=== PATIENT | female | born 1990 | race African-American/Black ===

== ENCOUNTER 2023-07-16 18:17 | Emergency (ER) | payer OTHER, SELFPAY ==
[2023-07-16 18:21] VITALS: BP 133/92; PULSE 95; RESP 18; TEMP 36.8; O2SAT 100; BMI 37.8
--- NOTE | 2023-07-16 18:26 | ED.CHESTPAI1 ---
Documented by User: GORAN Dominguez 07/16/23 20:31 HPI - Chest Pain General Chief Complaint: Chest Pain Stated Complaint: CHEST PAIN Time Seen by Provider: 07/16/23 18:18 Mode of arrival: walk-in Limitations: no limitations History of Present Illness HPI narrative: patient is a 32-year-old female who presents to the emergency department for the evaluation of pain in the substernal chest/epigastrium that began around 8:30 this morning. She states she has felt lightheaded, nauseous all day. She denies any vertigo-type symptoms. She has had no fevers, upper respiratory symptoms or vomiting. She denies any history of heart or lung problems. She is not concerned for . she takes Protonix for history of acid reflux. She has not had any extremity swelling. Risk Factors Coronary artery disease risk factors: none Related Data Home Medications Medication Instructions Recorded Confirmed pantoprazole 40 mg tablet,delayed 40 mg PO DAILY 07/16/23 07/16/23 release Previous Rx's Medication Instructions Recorded methocarbamol 750 mg tablet 750 mg PO TID PRN pain #20 tabs 07/16/23 sucralfate 1 gram tablet (Carafate) 1 g PO Q6H PRN pain #12 tabs 07/16/23 Allergies Allergy/AdvReac Type Severity Reaction Status Date / Time No Known Drug Allergies Allergy Verified 07/16/23 18:21 Review of Systems ROS Constitutional Denies: fever or chills Ears, nose, mouth, and throat Denies: throat pain Cardiovascular Reports: chest pain Respiratory Denies: shortness of breath or cough Gastrointestinal Reports: nausea; Denies: vomiting or diarrhea Genitourinary Denies: painful urination Musculoskeletal Denies: back pain or neck pain Integumentary/Breast Denies: rash Neurological Reports: dizziness; Denies: headache Endocrine Denies: excessive urination PFSH PFSH Social History Smoking status: Never smoker Exam Narrative Exam Narrative: Gen.: Awake, alert, in no distress Head: Normocephalic, atraumatic ENT: Moist mucous membranes Respiratory: No respiratory distress, lungs clear bilaterally Cardio: Regular rate and rhythm, tender in the inferior sternum/epigastrium with no guarding or rebound Gastrointestinal: Abdomen is soft, nondistended and nontender to palpation Extremities: Moves extremities equally, no pedal edema Psych: Normal mood and affect Neuro: No focal neuro deficit Skin: Warm, dry, intact Constitutional Vital Signs, click to edit/add: Last Vital Signs Temp 98.2 F 07/16/23 18:21 Pulse 98 H 07/16/23 19:47 Resp 18 07/16/23 19:47 BP 141/80 07/16/23 19:47 Pulse Ox 100 07/16/23 19:47 Course Vital Signs Vital signs: Vital Signs Temperature 98.2 F 07/16/23 18:21 Pulse Rate 95 H 07/16/23 18:21 Respiratory Rate 18 07/16/23 18:21 Blood Pressure 133/92 H 07/16/23 18:21 Pulse Oximetry 100 07/16/23 18:21 Temperature 98.2 F 07/16/23 18:21 Pulse Rate 98 H 07/16/23 19:47 Respiratory Rate 18 07/16/23 19:47 Blood Pressure 141/80 07/16/23 19:47 Pulse Oximetry 100 07/16/23 19:47 MDM - Chest Pain MDM Narrative Medical decision making narrative: patient treated with IV fluids, aspirin given as a precaution and she was given IV Pepcid, Toradol and reported improvement. Lab studies are unremarkable although potassium was slightly low. This was replenished orally in the Emergency Room. D-dimer was elevated and CT angiogram of the chest shows no evidence of PE or other abnormalities. Stable vital signs on reevaluation and the patient is discharged home with primary care follow-up. She was given Carafate as I suspect esophagitis as part of her source of pain, Robaxin given as needed for chest wall pain. Return to the Emergency Room if symptoms change or worsen. Medical Records Data Attestation: I reviewed the patient's medical records. Lab Data Attestation: I reviewed the patient's lab results. Labs: Lab Results 07/16/23 Range/Units 18:25 WBC 9.7 (4.0-11.0) 10^3/uL RBC 4.29 (4.20-5.40) 10^6/uL Hgb 12.2 (12.0-16.0) g/dL Hct 36.9 (36.0-48.0) % MCV 86.0 (81.0-99.0) fL MCH 28.4 (26.7-34.0) pg MCHC 33.1 (29.9-35.2) g/dL RDW 13.2 (11.0-15.0) % Plt Count 238 (150-450) 10^3/uL MPV 11.0 (9.5-13.5) fL Neut % (Auto) 66.8 (43.0-75.0) % Lymph % (Auto) 24.7 (20.5-60.0) % [place] % (Auto) 7.0 (1.7-12.0) % Eos % (Auto) 0.3 L (0.9-7.0) % Baso % (Auto) 0.9 (0.2-2.0) % Neut # (Auto) 6.5 (1.4-6.5) 10^3/uL Lymph # (Auto) 2.4 (1.2-3.8) 10^3/uL [place] # (Auto) 0.7 (0.3-0.8) 10^3/uL Eos # (Auto) 0.0 (0.0-0.7) 10^3/uL Baso # (Auto) 0.1 (0.0-0.1) 10^3/uL Abs Immat Gran (auto) 0.03 (0.00-0.03) 10^3/uL Imm/Tot Granulo (auto) 0.3 (0.0-0.5) % PT 10.4 (9.0-11.6) sec INR 0.98 APTT 27.2 (22.3-36.2) sec D-Dimer 1.21 H* (<=0.59) mg/L FEU Sodium 135 L (136-145) mmol/L Potassium 3.2 L (3.5-5.1) mmol/L Chloride 103 (98-107) mmol/L Carbon Dioxide 23.1 (21.0-32.0) mmol/L Anion Gap 12.1 BUN 10.0 (7.0-18.0) mg/dL Creatinine 0.91 (0.55-1.02) mg/dL Est GFR ( Amer) >60 (>=60) Est GFR (Non-Af Amer) >60 (>=60) BUN/Creatinine Ratio 11.0 Glucose 93 (74-106) mg/dL Calcium 9.2 (8.5-10.1) mg/dL Total Bilirubin 0.4 (0.2-1.0) mg/dL AST 30 (15-37) U/L ALT 73 H (14-59) U/L Alkaline Phosphatase 89 (46-116) U/L Troponin I High Sens <4.0 L (4.0-51.3) pg/mL NT-Pro-B Natriuret Pep 16.0 (<=450.0) pg/mL Total Protein 8.2 (6.4-8.2) g/dL Albumin 3.9 (3.4-5.0) g/dL Globulin 4.3 g/dL Albumin/Globulin Ratio 0.9 Lipase 35.0 (16.0-77.0) U/L Imaging Data CT scan - chest: Attestation: I have reviewed the pertinent imaging results. Radiologist's impression: Procedure: CT angio chest EXAMINATION: CHEST CT WITH CONTRAST (PULMONARY EMBOLISM PROTOCOL) Indication: Chest pain Technique: Spiral CT acquisition of the chest from the thoracic inlet to the upper abdomen following IV contrast. Maximum intensity projection (MIP)reconstructions were performed. All CT scans at this facility use dose modulation, iterative reconstruction, and/or weight based dosing when appropriate to reduce radiation dose to as low as reasonably achievable. Contrast: 100 mL of Omnipaque 350 IV Comparison: CT chest 08/29/2017 RESULT: Limitations: None. Evaluation for thromboembolic disease: - Right heart chambers: No thromboembolic disease. - Main pulmonary arteries: No thromboembolic disease. - Lobar pulmonary arteries: No thromboembolic disease. - Segmental pulmonary arteries: No thromboembolic disease. - Subsegmental pulmonary arteries: No thromboembolic disease. Lines, tubes, and devices: None. Lung parenchyma and pleura: No consolidation. No suspicious pulmonary nodule. No pleural effusion. Central airways are patent. Thoracic inlet, heart, and mediastinum: No lymphadenopathy in the axillary, mediastinal, or hilar regions. The thoracic aorta and main pulmonary artery are normal in caliber. The cardiac chambers are normal in size. No coronary artery atherosclerotic calcifications are noted, although the study is not optimized for coronary assessment. No pericardial effusion or thickening. Bones and soft tissues: No destructive bone lesion. Chest wall is unremarkable. Upper abdomen: Diffuse steatosis. . IMPRESSION: No CT evidence of pulmonary embolism or acute findings in the thorax. Diffuse hepatic steatosis. Electronically authenticated by: MARGARITA QUILES Date: 07/16/2023 20:13 ECG Data Attestation: I personally reviewed and interpreted this ECG as follows: (normal sinus rhythm at a rate of eighty-eight, sinus arrhythmia noted with no acute ST elevation or ectopy. EKG reviewed by attending physician) ECG interpretation date: 07/16/23 ECG interpretation time: 18:37 Heart Score History: Slightly/Non-Suspicious ECG: Normal Age: <45 years Risk Factors: 1 or 2 Risk Factors Troponin: <Normal Limit Total Heart Score Recommendations & Risks:: 1 Discharge Plan Discharge Chief Complaint: Chest Pain Clinical Impression: Chest pain Patient Disposition: Home, Self-Care Time of Disposition Decision: 20:27 Condition: Good Prescriptions / Home Meds: New sucralfate [Carafate] 1 gram tablet 1 g PO Q6H PRN (Reason: pain) Qty: 12 0RF methocarbamol 750 mg tablet 750 mg PO TID PRN (Reason: pain) Qty: 20 0RF No Action pantoprazole 40 mg tablet,delayed release (DR/EC) 40 mg PO DAILY Instructions: Chest Pain (ED) Stand Alone Forms: Portal Instructions Referrals: Physician,Non-Staff, [Primary Care Provider] - 1 week Discharge Date/Time: 07/16/23 20:46 Documented by User: Tuan Trent MD 07/17/23 06:53 HPI - Chest Pain General Chief Complaint: Chest Pain Stated Complaint: CHEST PAIN Time Seen by Provider: 07/16/23 18:18 Related Data Home Medications Medication Instructions Recorded Confirmed pantoprazole 40 mg tablet,delayed 40 mg PO DAILY 07/16/23 07/16/23 release Previous Rx's Medication Instructions Recorded methocarbamol 750 mg tablet 750 mg PO TID PRN pain #20 tabs 07/16/23 sucralfate 1 gram tablet (Carafate) 1 g PO Q6H PRN pain #12 tabs 07/16/23 Allergies Allergy/AdvReac Type Severity Reaction Status Date / Time No Known Drug Allergies Allergy Verified 07/16/23 18:21 PFSH PFSH Social History Smoking status: Never smoker Exam Constitutional Vital Signs, click to edit/add: Last Vital Signs Temp 98.2 F 07/16/23 18:21 Pulse 98 H 07/16/23 19:47 Resp 18 07/16/23 19:47 BP 141/80 07/16/23 19:47 Pulse Ox 100 07/16/23 19:47 Course Vital Signs Vital signs: Vital Signs Temperature 98.2 F 07/16/23 18:21 Pulse Rate 95 H 07/16/23 18:21 Respiratory Rate 18 07/16/23 18:21 Blood Pressure 133/92 H 07/16/23 18:21 Pulse Oximetry 100 07/16/23 18:21 Temperature 98.2 F 07/16/23 18:21 Pulse Rate 98 H 07/16/23 19:47 Respiratory Rate 18 07/16/23 19:47 Blood Pressure 141/80 07/16/23 19:47 Pulse Oximetry 100 07/16/23 19:47 MDM - Chest Pain Lab Data Labs: Lab Results 07/16/23 Range/Units 18:25 WBC 9.7 (4.0-11.0) 10^3/uL RBC 4.29 (4.20-5.40) 10^6/uL Hgb 12.2 (12.0-16.0) g/dL Hct 36.9 (36.0-48.0) % MCV 86.0 (81.0-99.0) fL MCH 28.4 (26.7-34.0) pg MCHC 33.1 (29.9-35.2) g/dL RDW 13.2 (11.0-15.0) % Plt Count 238 (150-450) 10^3/uL MPV 11.0 (9.5-13.5) fL Neut % (Auto) 66.8 (43.0-75.0) % Lymph % (Auto) 24.7 (20.5-60.0) % [place] % (Auto) 7.0 (1.7-12.0) % Eos % (Auto) 0.3 L (0.9-7.0) % Baso % (Auto) 0.9 (0.2-2.0) % Neut # (Auto) 6.5 (1.4-6.5) 10^3/uL Lymph # (Auto) 2.4 (1.2-3.8) 10^3/uL [place] # (Auto) 0.7 (0.3-0.8) 10^3/uL Eos # (Auto) 0.0 (0.0-0.7) 10^3/uL Baso # (Auto) 0.1 (0.0-0.1) 10^3/uL Abs Immat Gran (auto) 0.03 (0.00-0.03) 10^3/uL Imm/Tot Granulo (auto) 0.3 (0.0-0.5) % PT 10.4 (9.0-11.6) sec INR 0.98 APTT 27.2 (22.3-36.2) sec D-Dimer 1.21 H* (<=0.59) mg/L FEU Sodium 135 L (136-145) mmol/L Potassium 3.2 L (3.5-5.1) mmol/L Chloride 103 (98-107) mmol/L Carbon Dioxide 23.1 (21.0-32.0) mmol/L Anion Gap 12.1 BUN 10.0 (7.0-18.0) mg/dL Creatinine 0.91 (0.55-1.02) mg/dL Est GFR ( Amer) >60 (>=60) Est GFR (Non-Af Amer) >60 (>=60) BUN/Creatinine Ratio 11.0 Glucose 93 (74-106) mg/dL Calcium 9.2 (8.5-10.1) mg/dL Total Bilirubin 0.4 (0.2-1.0) mg/dL AST 30 (15-37) U/L ALT 73 H (14-59) U/L Alkaline Phosphatase 89 (46-116) U/L Troponin I High Sens <4.0 L (4.0-51.3) pg/mL NT-Pro-B Natriuret Pep 16.0 (<=450.0) pg/mL Total Protein 8.2 (6.4-8.2) g/dL Albumin 3.9 (3.4-5.0) g/dL Globulin 4.3 g/dL Albumin/Globulin Ratio 0.9 Lipase 35.0 (16.0-77.0) U/L Heart Score Total Heart Score Recommendations & Risks:: 1 Discharge Plan Discharge Chief Complaint: Chest Pain Clinical Impression: Chest pain Patient Disposition: Home, Self-Care Time of Disposition Decision: 20:27 Condition: Good Prescriptions / Home Meds: New sucralfate [Carafate] 1 gram tablet 1 g PO Q6H PRN (Reason: pain) Qty: 12 0RF methocarbamol 750 mg tablet 750 mg PO TID PRN (Reason: pain) Qty: 20 0RF No Action pantoprazole 40 mg tablet,delayed release (DR/EC) 40 mg PO DAILY Instructions: Chest Pain (ED) Stand Alone Forms: Portal Instructions Referrals: Physician,Non-Staff, MD [Primary Care Provider] - 1 week Discharge Date/Time: 07/16/23 20:46
--- NOTE | 2023-07-16 18:33 | ECG_ITS ---
[facility] Test Date: 2023-07-16 Pat Name: MIGNON LAINEZ Department: Room: - Gender: Female Medical Secretary: : 1990 Requested By: 0929 Order Number: [id number] Reading MD: ABDULKADIR WEINBERG Measurements Intervals [place] Rate: 88 P: 24 [place]: 142 QRS: 28 QRSD: 80 T: 25 QT: 336 QTc: 381 Interpretive Statements 1100 Sinus rhythm 1102 Sinus arrhythmia 3113 Cannot rule out anterior myocardial infarction, probably old 9150 abnormal ECG No previous ECG available for comparison Electronically Signed On 07-17-2023 7:04:36 EDT by ABDULKADIR WEINBERG
[2023-07-16] MEDS: ASPIRIN 81 MG TAB.CHEW 162 MG PO (18:59)
[2023-07-16] MEDS: KETOROLAC TROMETHAMINE 30 MG/ML VIAL IVP (19:00)
[2023-07-16] MEDS: FAMOTIDINE/PF 20 MG/2 ML VIAL IV (19:00)
[2023-07-16] MEDS: ONDANSETRON PF 4 MG/2 ML VIAL IV (19:00)
[2023-07-16 19:01] VITALS: BP 148/98; PULSE 90; RESP 18; O2SAT 100
[2023-07-16 19:02] LABS: Basophils Absolute Auto 0.1 10^3/uL (0.0-0.1); Basophils Percent Auto 0.9 % (0.2-2.0); Eosinophils Percent Auto 0.3 % (0.9-7.0); Hematocrit 36.9 % (36.0-48.0); Hemoglobin 12.2 g/dL (12.0-16.0); Immature Granulocytes Abs Auto 0.03 10^3/uL (0.00-0.03); Immature Granulocytes Pct Auto 0.3 % (0.0-0.5); Lymphocytes Absolute Auto 2.4 10^3/uL (1.2-3.8); Lymphocytes Percent Auto 24.7 % (20.5-60.0); Mean Corpuscular HGB Conc 33.1 g/dL (29.9-35.2); Mean Corpuscular Hemoglobin 28.4 pg (26.7-34.0); Monocytes Absolute Auto 0.7 10^3/uL (0.3-0.8); Neutrophils Absolute Auto 6.5 10^3/uL (1.4-6.5); Neutrophils Percent Auto 66.8 % (43.0-75.0); Platelet Count 238 10^3/uL (150-450); Red Blood Count 4.29 10^6/uL (4.20-5.40); Red Cell Distribution Width 13.2 % (11.0-15.0); White Blood Count 9.7 10^3/uL (4.0-11.0)
[2023-07-16 19:15] LABS: INR 0.98; Partial Thromboplastin Time 27.2 sec (22.3-36.2); Prothrombin Time 10.4 sec (9.0-11.6)
--- NOTE | 2023-07-16 19:17 | CT_ITS ---
The [address] [address] Patient Name: MIGNON LAINEZ MRN: [id number] date: 1990 Sex: F Assigned Patient Location: ER Current Patient Location: ER Accession/Order Number: [id number] Exam Date: 07/16/2023 19:35 Report Date: 07/16/2023 20:13 At the request of: LAILTA GIVENS Procedure: CT angio chest EXAMINATION: CHEST CT WITH CONTRAST (PULMONARY EMBOLISM PROTOCOL) Indication: Chest pain Technique: Spiral CT acquisition of the chest from the thoracic inlet to the upper abdomen following IV contrast. Maximum intensity projection (MIP)reconstructions were performed. All CT scans at this facility use dose modulation, iterative reconstruction, and/or weight based dosing when appropriate to reduce radiation dose to as low as reasonably achievable. Contrast: 100 mL of Omnipaque 350 IV Comparison: CT chest 08/29/2017 RESULT: Limitations: None. Evaluation for thromboembolic disease: - Right heart chambers: No thromboembolic disease. - Main pulmonary arteries: No thromboembolic disease. - Lobar pulmonary arteries: No thromboembolic disease. - Segmental pulmonary arteries: No thromboembolic disease. - Subsegmental pulmonary arteries: No thromboembolic disease. Lines, tubes, and devices: None. Lung parenchyma and pleura: No consolidation. No suspicious pulmonary nodule. No pleural effusion. Central airways are patent. Thoracic inlet, heart, and mediastinum: No lymphadenopathy in the axillary, mediastinal, or hilar regions. The thoracic aorta and main pulmonary artery are normal in caliber. The cardiac chambers are normal in size. No coronary artery atherosclerotic calcifications are noted, although the study is not optimized for coronary assessment. No pericardial effusion or thickening. Bones and soft tissues: No destructive bone lesion. Chest wall is unremarkable. Upper abdomen: Diffuse steatosis. . CT/CT angio chest IMPRESSION: No CT evidence of pulmonary embolism or acute findings in the thorax. Diffuse hepatic steatosis. Electronically authenticated by: MARGARITA QUILES Date: 07/16/2023 20:13
[2023-07-16 19:18] LABS: D Dimer 1.21 mg/L FEU (<=0.59)
[2023-07-16 19:30] LABS: Alanine Aminotransferase 73 U/L (14-59); Albumin Globulin Ratio 0.9; Albumin Level 3.9 g/dL (3.4-5.0); Alkaline Phosphatase 89 U/L (46-116); Anion Gap 12.1; Aspartate Amino Transferase 30 U/L (15-37); Bilirubin Total 0.4 mg/dL (0.2-1.0); Calcium 9.2 mg/dL (8.5-10.1); Carbon Dioxide 23.1 mmol/L (21.0-32.0); Chloride 103 mmol/L (98-107); Estimated GFR (African America >60 (>=60); Estimated GFR (Non-African Ame >60 (>=60); Globulin 4.3 g/dL; Glucose 93 mg/dL (74-106); Potassium 3.2 mmol/L (3.5-5.1); Sodium 135 mmol/L (136-145); Total Protein 8.2 g/dL (6.4-8.2); Troponin I High Sensitivity <4.0 pg/mL (4.0-51.3)
[2023-07-16 19:47] VITALS: BP 141/80; PULSE 98; RESP 18; O2SAT 100
[2023-07-16] MEDS: POTASSIUM BICARBONATE/CIT 25 MEQ TABLET EFF 50 MEQ PO (20:04)
== END 2023-07-16 20:46 | disposition home or self-care (01) ==
PROVIDERS: Physician Assistant; Emergency Provider Internal Medicine
DX: R07.9 Chest pain, unspecified (principal); Z79.899 Other long term (current) drug therapy; K21.9 Gastro-esophageal reflux disease without esophagitis; R79.89 Other specified abnormal findings of blood chemistry
CPT/HCPCS: 36415; 71275; 80053; 83690; 83880; 84484; 85025; 85378; 85610; 85730; 93005; 96374; 96375; 99285; Q9967

== ENCOUNTER 2025-02-14 20:58 | Observation (INO) | payer BC, SELFPAY ==
[2025-02-14] VITALS (20 sets, daily range): BP systolic 127–137; BP diastolic 72–95; PULSE 103; TEMP 37.3; O2SAT 97–100; BMI 39.5
--- NOTE | 2025-02-14 21:23 | PC.NURSE ---
complains of left forearm numbness onset 1 week ago, denies any injury, falls or trauma to the left forearm to causes this numbness then a couple days ago numbness progressed to left hand, left face and left leg. this patient voices no other complaints or needs and shows no signs of distress
--- NOTE | 2025-02-14 21:27 | ED_ITS ---
HPI HPI - General Adult General Chief complaint: Extremity Problem, Nontraumatic Stated complaint: NUMBNESS ON L SIDE OF BODY Time Seen by Provider: 02/14/25 21:09 Source: patient Mode of arrival: walk-in History of Present Illness HPI narrative: patient presents complaining of numbness of her left arm on and off for the past week. Today numbness left arm , left hand and left toes . Also sensation numbness left face. No weakness or headache. No dizziness or difficulty walking. Does not have past history of HTN Related Data Allergies Allergy/AdvReac Type Severity Reaction Status Date / Time No Known Drug Allergies Allergy Verified 07/16/23 18:21 Opioid HPI Opioid Management Most Recent Opioid Data: Last Pain Scale 4 Today, 06:00 Last Pain Assessment Today, 05:00 Last ORT Total Score 1 Today, 04:21 Last ORT Risk Category Low Risk Today, 04:21 Review of Systems ROS Status of ROS 10 or more systems reviewed and unremark able except as noted in history and below [facility] Medical History (Updated 02/15/25 @ 04:48 by Magalie Curry) Sleep apnea ?G47.30 - Sleep apnea, unspecified (ICD-10) section wound complications ?O90.9 - Complication of the puerperium, unspecified (ICD-10) Surgical History (Updated 02/15/25 @ 04:46 by Magalie Curry) H/O adenoidectomy ?Z90.89 - Acquired absence of other organs (ICD-10) History of placement of ear tubes ?Z96.22 - Myringotomy tube(s) status (ICD-10) History of tonsillectomy ?Z90.89 - Acquired absence of other organs (ICD-10) Family History (Updated 02/15/25 @ 04:49 by Magalie Curry) Father Family history of diabetes mellitus Mother Family history of hypertension Aunt Family history of myocardial infarction Social History (Updated 02/15/25 @ 04:51 by Magalie Curry) Within the past year, how often did you have a drink containing alcohol: monthly or less Within the past year, how many standard drinks containing alcohol did you have on a typical day: 1 or 2 Within the past year, how often did you have six or more drinks on one occasion: never Total score: 0 Score interpretation: A score less than 3 is consistent with normal alcohol consumption. Smoking status: Never smoker Non-prescribed substance use: denies use Previous occupational history: [employer] Highest level of school completed/degree received: high school graduate Little interest or pleasure in doing things: not at all Feeling down, depressed, or hopeless: not at all Feel stressed/tense/nervous/anxious/difficulty sleeping: not at all Exam Constitutional Vital Signs, click to edit/add: Last Vital Signs Temp 98.2 F 02/15/25 04:21 Pulse 73 02/15/25 06:00 Resp 16 02/15/25 04:21 BP 145/80 H 02/15/25 04:21 Pulse Ox 97 02/15/25 04:21 O2 Del Method Room Air 02/15/25 04:21 Common normals: no apparent distress, average body habitus, oriented x3, no limitations, healthy appearing, alert and well nourished HENKY Common normals: normocephalic and head/scalp atraumatic Eye Common normals: PERRL, EOMs intact bilaterally and conjunctivae normal Respiratory Common normals: normal respiratory effort, no retractions, no use of accessory muscles and clear to auscultation bilaterally Cardio Common normals: regular rate, regular rhythm, S1 normal heart sound and S2 normal heart sound GI Common normals: Normal to inspection, nondistended, normoactive bowel sounds present, soft to palpation and non-tender Extremity Common normals: normal to inspection and full ROM Neuro Common normals: oriented x3, CN's II-XII intact bilaterally, moves all extremities and no focal motor deficits Psych Appearance: grossly normal Course Vital Signs Vital signs: Vital Signs Temperature 99.2 F 02/14/25 21:03 Pulse Rate 103 H 02/14/25 21:03 Respiratory Rate 16 02/14/25 21:03 Blood Pressure 137/82 02/14/25 21:03 Pulse Oximetry 100 02/14/25 21:03 Oxygen Delivery Method Room Air 02/14/25 21:03 Temperature 98.2 F 02/15/25 04:21 Pulse Rate 73 02/15/25 06:00 Respiratory Rate 16 02/15/25 04:21 Blood Pressure 145/80 H 02/15/25 04:21 Pulse Oximetry 97 02/15/25 04:21 Oxygen Delivery Method Room Air 02/15/25 04:21 Medical Decision Making MDM Narrative Medical decision making narrative: patient who is otherwise healthy presents complaining of numbing sensation left arm on and off over the past week. Tonight again developed numbness of the left arm but also had numbness left hand, left toes and left face. No muscular weakness . No headache, dizziness or visual complaint. Exam unremarkable. Basic labs neg and noncontrast CT brain neg. Patient re evaluated and now she is symptom free. Neurology paged Discussed with [facility] stroke who recommends CTA brain CTA brain return without hemodynamically significant stenosis or aneurysymal dilatation. [facility] who recommends admission and workup for possible causes of TIA due to recurrent episodes of unilateral numbness. Patient and her family informed and are in agreement Lab Data Labs: Lab Results 02/14/25 02/14/25 Range/Units 21:10 21:45 WBC 6.5 (4.0-11.0) 10^3/uL RBC 4.34 (4.20-5.40) 10^6/uL Hgb 12.8 (12.0-16.0) g/dL Hct 37.0 (36.0-48.0) % MCV 85.3 (81.0-99.0) fL MCH 29.5 (26.7-34.0) pg MCHC 34.6 (29.9-35.2) g/dL RDW 12.8 (11.0-15.0) % Plt Count 229 (150-450) 10^3/uL MPV 11.2 (9.5-13.5) fL Neut % (Auto) 66.3 (43.0-75.0) % Lymph % (Auto) 25.1 (20.5-60.0) % [place] % (Auto) 6.4 (1.7-12.0) % Eos % (Auto) 1.1 (0.9-7.0) % Baso % (Auto) 0.9 (0.2-2.0) % Neut # (Auto) 4.3 (1.4-6.5) 10^3/uL Lymph # (Auto) 1.6 (1.2-3.8) 10^3/uL [place] # (Auto) 0.4 (0.3-0.8) 10^3/uL Eos # (Auto) 0.1 (0.0-0.7) 10^3/uL Baso # (Auto) 0.1 (0.0-0.1) 10^3/uL Abs Immat Gran (auto) 0.01 (0.00-0.03) 10^3/uL Imm/Tot Granulo (auto) 0.2 (0.0-0.5) % Sodium 139 (136-145) mmol/L Potassium 3.6 (3.5-5.1) mmol/L Chloride 105 (98-107) mmol/L Carbon Dioxide 26.4 (21.0-32.0) mmol/L Anion Gap 11.2 BUN 9.0 (7.0-18.0) mg/dL Creatinine 0.82 (0.55-1.02) mg/dL Est GFR ( Amer) >60 (>=60 mL/min/1.73m^2) Est GFR (Non-Af Amer) >60 (>=60 mL/min/1.73m^2) BUN/Creatinine Ratio 11.0 Glucose 96 (74-106) mg/dL Calcium 9.3 (8.5-10.1) mg/dL Magnesium 1.8 (1.8-2.4) mg/dL Urine HCG, Qual Negative (NEGATIVE) Discharge Plan Discharge Chief Complaint: Extremity Problem, Nontraumatic Clinical Impression: Paresthesia of left foot, Arm paresthesia, left, TIA (transient ischemic attack) Patient Disposition: Admitted as Observation Discharge Date/Time: 02/15/25 04:21
[2025-02-14 21:34] LABS: Basophils Absolute Auto 0.1 10^3/uL (0.0-0.1); Basophils Percent Auto 0.9 % (0.2-2.0); Eosinophils Absolute Auto 0.1 10^3/uL (0.0-0.7); Eosinophils Percent Auto 1.1 % (0.9-7.0); Hemoglobin 12.8 g/dL (12.0-16.0); Immature Granulocytes Abs Auto 0.01 10^3/uL (0.00-0.03); Immature Granulocytes Pct Auto 0.2 % (0.0-0.5); Lymphocytes Absolute Auto 1.6 10^3/uL (1.2-3.8); Lymphocytes Percent Auto 25.1 % (20.5-60.0); Mean Corpuscular HGB Conc 34.6 g/dL (29.9-35.2); Mean Corpuscular Hemoglobin 29.5 pg (26.7-34.0); Mean Corpuscular Volume 85.3 fL (81.0-99.0); Mean Platelet Volume 11.2 fL (9.5-13.5); Monocytes Absolute Auto 0.4 10^3/uL (0.3-0.8); Monocytes Percent Auto 6.4 % (1.7-12.0); Neutrophils Absolute Auto 4.3 10^3/uL (1.4-6.5); Neutrophils Percent Auto 66.3 % (43.0-75.0); Platelet Count 229 10^3/uL (150-450); Red Blood Count 4.34 10^6/uL (4.20-5.40); Red Cell Distribution Width 12.8 % (11.0-15.0); White Blood Count 6.5 10^3/uL (4.0-11.0)
[2025-02-14 21:50] LABS: Anion Gap 11.2; Calcium 9.3 mg/dL (8.5-10.1); Carbon Dioxide 26.4 mmol/L (21.0-32.0); Chloride 105 mmol/L (98-107); Estimated GFR (African America >60 (>=60 mL/min/1.73m^2); Estimated GFR (Non-African Ame >60 (>=60 mL/min/1.73m^2); Glucose 96 mg/dL (74-106); Magnesium 1.8 mg/dL (1.8-2.4); Potassium 3.6 mmol/L (3.5-5.1); Sodium 139 mmol/L (136-145)
[2025-02-14 21:52] LABS: HCG Qualitative Urine* NEGATIVE (NEGATIVE); Internal Control Within Normal Limits
--- NOTE | 2025-02-14 23:40 | PC.NURSE ---
this patient is back in bed from ambulated to restroom, this patient voices no concerns and this patient gait was steady
[2025-02-15] VITALS (31 sets, daily range): BP systolic 111–147; BP diastolic 64–89; PULSE 54–76; TEMP 36.6–36.8; O2SAT 97–100; BMI 39.0
[2025-02-15] MEDS: ASPIRIN 81 MG TAB.CHEW 324 MG PO (03:18)
--- NOTE | 2025-02-15 06:17 | MR_ITS ---
The [address] [address] Patient Name: MIGNON LAINEZ MRN: [id number] date: 1990 Sex: F Assigned Patient Location: MS Current Patient Location: MS Accession/Order Number: [id number] Exam Date: 02/15/2025 09:02 Report Date: 02/15/2025 09:06 At the request of: BLANCA JARA NP Procedure: MR head/brain wo con MR head/brain wo con 02/15/2025 8:51 AM SIGN AND SYMPTOMS: ^rule out TIA/CVA, acute left-sided numbness PROTOCOL: Multiplanar multisequence MR images of the brain were obtained without IV contrast COMPARISON: 02/14/2025 CT of the head FINDINGS: Extra axial spaces: Age appropriate. Hemorrhage: None. Ventricular system: Within normal limits. Basal cisterns: Within normal limits and not effaced. Cerebral parenchyma: Normal in signal. Midline shift: None.. Cerebellum: Within normal limits. Brainstem: Within normal limits. OTHER: Calvarium: Normal marrow signal. Vascular system: Satisfactory flow voids within the anterior and posterior circulation. Visualized Paranasal sinuses: Mucosal thickening is present in the maxillary sinuses bilaterally. Visualized Orbits: Within normal limits. Visualized upper cervical spine: Within normal limits. Sella and skull base: Within normal limits. MR/MR head/brain wo con IMPRESSION: No acute intracranial pathology. No evidence of acute or subacute ischemia. Polypoid mucosal thickening is noted in the maxillary sinuses bilaterally. Impression dictated by: Oren Sargent M.D. 02/15/2025 9:06 AM Dictation Location: [place] [address] Electronically authenticated by: [id number] Y Date: 02/15/2025 09:06
--- NOTE | 2025-02-15 06:38 | P.HP_ITS ---
HPI H&P: HPI History of Present Illness Chief complaint: TIA Narrative: Patient presented to the emergency room secondary to left-sided paresthesias, denies weakness, of these episodes were coming and going but accelerating in frequency and length of symptoms, now describing tingling into her left leg as well. She denies any neck pain or low back pain. When I saw patient up in the medical surgical floor she still complaining of the left-sided tingling more predominantly in her hand Opioid HPI Opioid Management Most Recent Pain and Opioid Data: Last Pain Scale 4 Today, 06:00 Last Pain Assessment Today, 05:00 Last ORT Total Score 1 Today, 04:21 Last ORT Risk Category Low Risk Today, 04:21 Review of Systems ROS Status of ROS 10 or more systems reviewed and unremark able except as noted in history and below [facility] Medical History (Updated 02/15/25 @ 04:48 by Magalie Curry) Sleep apnea ?G47.30 - Sleep apnea, unspecified (ICD-10) section wound complications ?O90.9 - Complication of the puerperium, unspecified (ICD-10) Surgical History (Updated 02/15/25 @ 04:46 by Magalie Curry) H/O adenoidectomy ?Z90.89 - Acquired absence of other organs (ICD-10) History of placement of ear tubes ?Z96.22 - Myringotomy tube(s) status (ICD-10) History of tonsillectomy ?Z90.89 - Acquired absence of other organs (ICD-10) Family History (Updated 02/15/25 @ 04:49 by Magalie Curry) Father Family history of diabetes mellitus Mother Family history of hypertension Aunt Family history of myocardial infarction Social History (Updated 02/15/25 @ 04:51 by Magalie Curry) Within the past year, how often did you have a drink containing alcohol: monthly or less Within the past year, how many standard drinks containing alcohol did you have on a typical day: 1 or 2 Within the past year, how often did you have six or more drinks on one occasion: never Total score: 0 Score interpretation: A score less than 3 is consistent with normal alcohol consumption. Smoking status: Never smoker Non-prescribed substance use: denies use Previous occupational history: [employer] Highest level of school completed/degree received: high school graduate Little interest or pleasure in doing things: not at all Feeling down, depressed, or hopeless: not at all Feel stressed/tense/nervous/anxious/difficulty sleeping: not at all Meds Home Medications and Allergies Allergies Allergy/AdvReac Type Severity Reaction Status Date / Time No Known Drug Allergies Allergy Verified 07/16/23 18:21 Exam Constitutional Vital Signs, click to edit/add: Last Vital Signs Temp 98.2 F 02/15/25 04:21 Pulse 73 02/15/25 06:00 Resp 16 02/15/25 04:21 BP 145/80 H 02/15/25 04:21 Pulse Ox 97 02/15/25 04:21 O2 Del Method Room Air 02/15/25 04:21 Documenting provider has reviewed patient's vital signs: yes Common normals: no apparent distress HENMT Common normals: normocephalic Respiratory Common normals: normal respiratory effort and no retractions Cardio Common normals: regular rate and regular rhythm GI Common normals: Normal to inspection, nondistended, normoactive bowel sounds present Neuro Common normals: oriented x3, CN's II-XII intact bilaterally and moves all extremities (Excellent strength in upper extremities) Results Labs Labs: Short CBC 02/14/25 Range/Units 21:10 WBC 6.5 (4.0-11.0) 10^3/uL Hgb 12.8 (12.0-16.0) g/dL Hct 37.0 (36.0-48.0) % Plt Count 229 (150-450) 10^3/uL BMP 02/14/25 21:10 Sodium 139 Potassium 3.6 Chloride 105 Carbon Dioxide 26.4 BUN 9.0 Creatinine 0.82 Glucose 96 Calcium 9.3 Assessment and Plan Assessment and Plan (1) TIA (transient ischemic attack): (2) Arm paresthesia, left: (3) Paresthesia of left foot: (4) Sleep apnea: Plan Admission findings: Elevated blood pressure admission improved this morning, when I saw patient medical surgical floor still complaining of left-sided paresthesias Left-sided paresthesias-MRI scan pending, check carotid Doppler as well as echocardiogram, brain CTA negative, patient on aspirin, if MRI normal, will discuss with telestroke, likely discharged to home on an aspirin a day and outpatient Holter monitor [id number], continue to follow Admission status: Patient admitted to observation status with TIA type symptoms although she does still have some persisting symptoms this morning, MRI is pending, medically necessary treatment still likely to only span 1 midnight, maintain observational status, if she is recommended by telestroke team to continue with admission, medically necessary treatment will then span 2 midnights and she will be changed to inpatient status
--- NOTE | 2025-02-15 06:47 | CA_ITS ---
Patient Name: MIGNON LAINEZ MR#: [id number] : 1990 Exam Date: 02/15/2025 Ordering Doctor: DR SILVERIO YOUNG . ECHOCARDIOGRAM REPORT PROCEDURE: CA ECHO DOPPLER COMPLETE INDICATIONS: tia COMPARISON: None. DESCRIPTION: COMPLETE ECHOCARDIOGRAM Real-time transthoracic echocardiography with 2D, M-mode, spectral and color flow Doppler performed. QUALITY: Technical quality was good. LEFT VENTRICLE: Normal chamber size. Normal left ventricular wall thickness. Global left ventricular systolic function is normal. LV EF: Estimated left ventricular ejection fraction is 65%. DIASTOLIC: Normal diastolic function. ATRIAL SEPTUM: LEFT ATRIUM: Normal chamber size. RIGHT ATRIUM: Normal chamber size. RIGHT VENTRICLE: Normal chamber size. Normal right ventricular systolic function. TRICUSPID VALVE: Normal mobility and thickness. No stenosis with trivial regurgitation. No evidence of pulmonary hypertension. RVSP 29 mmHg MITRAL VALVE: Normal mobility and thickness. No evidence of mitral valve stenosis. There is no mitral annular calcification. Trivial mitral regurgitation. AORTIC VALVE: Normal trileaflet appearance. No visible sclerosis. Normal leaflet mobility. No evidence of aortic valve stenosis. No aortic regurgitation. AORTIC ROOT: Normal diameter and appearance, measuring 3.3 cm. The ascending aorta is normal in size measuring 3.0 cm. PULMONIC VALVE: Normal thickness and mobility. No stenosis. Trivial regurgitation. PERICARDIUM: No evidence of pericardial effusion. IVC: Collapses with inspirations. Normal size. PLEURA: CONCLUSION: 1. Normal left ventricular size and systolic function. Estimated LVEF is 65%. 2. Normal right ventricular size and systolic function. 3. No significant valvular dysfunction. 4. Normal right-sided pressures. Adult Echocardiography Procedure Report Left Ventricle LVEDD (3.7 - 5.6 cm): 5.03 cm LVESD (2.2 - 4.0 cm): 3.49 cm LVIVS thickness (0.6 - 1.2 cm): 0.84 cm LVPW thickness (0.5 - 1.0 cm): 1.03 cm e': 0.17 m/s E - e': 3.09 LVOT Max Gradient: 2.24 mm[Hg] LVOT Area (cm2): 0.75 m/s Peak Velocity (LVOT): 0.75 m/s LVOT Diameter 2.22 cm Left Ventricular Ejection Fraction: 65 % Left Atrium LA Volume Index (2D A2C): 25.63 ml/m2 Left Atrium Systolic Dimension: 4.30 cm Mitral Valve MV E to A Ratio: 1.55 Mitral Valve A-Wave Peak Velocity: 0.35 m/s Mitral Valve E-Wave Peak Velocity: 0.54 m/s Right Ventricle RV Internal Diastolic Dimension: 3.15 cm Aorta AO Root Diam: 3.27 cm Ascending Ao Diam: 2.95 cm Aortic Valve AoV Area (Peak Bello): 2.41 cm2, 2.41 cm2 Peak Velocity(Antegrade Flow): 1.20 m/s Peak Gradient(Antegrade Flow): 5.79 mm[Hg] Tricuspid Valve Peak Velocity (Regurgitant Flow): 2.58 m/s, 2.27 m/s Pulmonic Valve Peak Velocity: 0.77 m/s Peak Gradient: 2.36 mm[Hg] Right Atrium Right Atrium Systolic Pressure: 29.74 ml, 29.74 ml Dictated by: Solomon Chou M.D. on 02/15/2025 at 18:03 Approved by: Solomon Chou M.D. on 02/15/2025 at 18:06
[2025-02-15 07:19] LABS: Alanine Aminotransferase 64 U/L (14-59); Albumin Globulin Ratio 1.1; Alkaline Phosphatase 95 U/L (46-116); Aspartate Amino Transferase 31 U/L (15-37); Bilirubin Direct 0.1 mg/dL (0.0-0.2); Bilirubin Total 0.3 mg/dL (0.2-1.0); Globulin 3.8 g/dL; Total Protein 7.8 g/dL (6.4-8.2)
--- NOTE | 2025-02-15 08:36 | CM.NOTE ---
Rounds made with Dr. Jo. Dr. Jo reviews findings and testing and Consults ordered with Ms. Diego. Understanding verbalized. Possible discharge later today.
[2025-02-15] MEDS: ASPIRIN 81 MG TABLET.DR PO (09:57)
--- NOTE | 2025-02-16 12:54 | CM.DCFOLLOWU ---
Person spoke with:patient How are you feeling?well How is your pain? no pain Did you understand your discharge instructions?yes Do you have any questions about your discharge instructions?no Were you given any prescriptions at discharge?yes Were you able to get your prescriptions filled?yes Do you understand how to take your medications as ordered?yes Do you have any questions about your follow up appointment and do you plan to keep your follow up appointment? no questions, follow ups reviewed Is there anything else that you would like to discuss?no Questions/Comments/Concerns/Other:none
== END 2025-02-15 15:30 | disposition home or self-care (01) ==
LOC: ER 02-15 03:10 → MS 02-15 04:17
PROVIDERS: Admitting Provider Family Medicine; Emergency Provider Internal Medicine; PCP Nurse Practitioner Family; Visit Provider Family Medicine
DX: G45.9 Transient cerebral ischemic attack, unspecified (principal); R20.2 Paresthesia of skin; G47.30 Sleep apnea, unspecified; I10 Essential (primary) hypertension
CPT/HCPCS: 36415; 70450; 70496; 70551; 80048; 80076; 83735; 84703; 85025; 93246; 93306; 93880; 94761; 97161; 99285; G0378; Q9967